=== PATIENT | male | born 2000 | race Two or more races ===

== ENCOUNTER 2024-07-20 21:01 | Emergency (ER) | payer MEDICAID, SELFPAY ==
[2024-07-20 21:04] VITALS: BMI 27.4
[2024-07-20 22:13] VITALS: BP 126/87; PULSE 103; RESP 20; TEMP 37.2; O2SAT 97
--- NOTE | 2024-07-20 22:48 | PD.EDURI ---
Upper Respiratory Inf. RME/HPI General Chief Complaint: Flu Like Symptoms Stated Complaint: FEVER,BODYACHES Time Seen by Provider: 07/20/24 22:36 Arrival date/time: 07/20/24 21:01 24M with history of asthma presents to ED with 3 days of cough, fevers/chills, and body aches. Limitations: no limitations Related Data Home Medications ?Medication ?Instructions ?Recorded ?Confirmed albuterol sulfate 90 mcg/actuation 2 inh inhalation Q6H PRN sob 12/13/19 12/13/19 aerosol inhaler ibuprofen 600 mg tablet 600 mg PO BID PRN Pain 12/13/19 12/13/19 montelukast 10 mg tablet 10 mg PO QDAY 12/13/19 12/13/19 omeprazole 20 mg capsule,delayed 20 mg PO QDAY 12/13/19 12/13/19 release Previous Rx's ?Medication ?Instructions ?Recorded budesonide-formoterol HFA 80 2 puff inhalation BID #10.2 grams 12/14/19 mcg-4.5 mcg/actuation aerosol inhaler (Symbicort) loratadine 10 mg tablet 10 mg PO QDAY PRN Allergy Symptoms 12/14/19 #0 tabs prednisone 10 mg tablet See Rx Instructions .Route 12/14/19 .COMPLEX #4 tabs albuterol sulfate 90 mcg/actuation 2 puff inhalation Q6H PRN 04/23/20 aerosol inhaler (Ventolin HFA) shortness of breath or wheezing #8.5 grams albuterol sulfate 2.5 mg/3 mL 2.5 mg (3 mL) inhalation Q4H #90 mL 07/18/21 (0.083 %) solution for nebulization albuterol sulfate 90 mcg/actuation 2 puff inhalation QID PRN 07/18/21 aerosol inhaler shortness of breath or wheezing #8.5 grams Allergies Allergy/AdvReac Type Severity Reaction Status Date / Time No Known Allergies Allergy Verified 04/23/20 08:50 Review of Systems Review of Systems Systems Reviewed: All systems reviewed, normal except as documented Constitutional Constitutional: Reports system reviewed and no additional complaints, except as documented, Reports as per HPI, Reports body ache(s), Reports chills, Reports fever(s) and Denies headache(s) ENT Ears, Nose, Mouth, and Throat: Denies disequilibrium and Denies headache(s) Cardiovascular Cardiovascular: Reports system reviewed and no additional complaints, except as documented, Denies chest pain and Denies dyspnea Respiratory Respiratory: Reports system reviewed and no additional complaints, except as documented, Reports as per HPI, Reports cough and Denies dyspnea Gastrointestinal Gastrointestinal: Reports system reviewed and no additional complaints, except as documented, Denies abdominal pain, Denies nausea and Denies vomiting Neurologic Neurologic: Reports system reviewed and no additional complaints, except as documented, Denies confusion, Denies disequilibrium and Denies headache(s) Psychiatric Psychiatric: Denies confusion Past Medical History Past Medical History CARDIAC: Negative Congestive Heart Failure RESPIRATORY: Positive Asthma; Negative Chronic Obstructive Pulmonary Disease (COPD) GENITOURINARY: Negative Renal Disease ENDOCRINE: Negative Diabetes Mellitus Type 1 or Diabetes Mellitus Type 2 Family History FAMILY HISTORY: Negative Family Neurologic Problems Social History SMOKING STATUS: Never smoker SECOND HAND EXPOSURE: No SUBSTANCE USE: does not use ED Exam General Limitations: Present no limitations General appearance: Present alert and in no apparent distress Head Head exam: Present atraumatic Eye Eye exam: Present normal appearance, PERRL and EOMI ENT ENT exam: Present normal exam, normal oropharynx and mucous membranes moist Neck Neck exam: Present normal inspection, full ROM and trachea midline Chest Chest inspection: Present normal inspection and symmetric chest wall rise Respiratory Respiratory exam: Present normal lung sounds bilaterally and prolonged expiratory phase Cardiovascular Cardiovascular exam: Present regular rate, normal rhythm and normal heart sounds Abdominal Exam Abdominal exam: Present soft and normal bowel sounds Extremities Exam Extremities exam: Present normal inspection and full ROM Back Exam Back exam: Present normal inspection and full ROM Neurological Exam Neurological exam: Present alert, oriented X3 and CN II-XII intact Psychiatric Psychiatric exam: Present normal affect and normal mood Skin Skin exam: Present warm, dry, intact and normal color Course Quality Measures none Orders Category Date Time Status Bedside Influenza A&B Antigen Test NOW Care 07/20/24 21:04 Completed Dexamethasone Inj [Decadron Inj] Med 07/20/24 22:36 Discontinued 10 mg PO X1 ONE Vital Signs Vital signs: Vital Signs Temperature 99.0 F 07/20/24 22:13 Pulse Rate 103 H 07/20/24 22:13 Respiratory Rate 20 07/20/24 22:13 Blood Pressure 126/87 H 07/20/24 22:13 Pulse Oximetry (%) 97 07/20/24 22:13 Oxygen Delivery Method Room Air 07/20/24 22:13 O2 at 97% on RA and WNLs Upper Respiratory Infection MDM Narrative MDM Narrative:: 24M with history of asthma presents to ED with 3 days of cough, fevers/chills, and body aches. Physical exam reveals clear lungs but prolonged expiration. Patient is afebrile, calm, and alert. Swabs neg. Likely viral URI causing mild asthma exacerbation. Meds and counseling specialist given. Patient data External records reviewed:: [facility] previous records Clinical information provided by:: patient Social determinants that could affect healthcare access:: none Patient has the following chronic illnesses:: asthma How is presenting disease/condition affected by chronic disease/condition?: exacerbated by Evaluation data The following diagnostics were reviewed and interpreted by me:: lab results Lab and/or radiology exams considered but not ordered:: ordered Interpretation Summary: above Medications / Prescriptions Medications or Prescriptions considered but not ordered:: ordered Medication administrations:: Medication Administration History Discontinued Medications Dexamethasone Sodium Phosphate (Dexamethasone Sod Phos Inj 10 Mg/Ml Vial) 10 mg PO X1 ONE Stop: 07/20/24 22:37 above Consultations Consultation(s) initiated? (list below): No Diagnosis Upper Respiratory Differential Diagnosis: upper respiratory infection, croup, otitis media, sinusitis, viral infection, bronchitis, influenza, pharyngitis and other (asthma exacerbation) Most likely diagnosis given after review of the tests above:: URI, asthma exacerbation Admission Indicated Admission indicated?: not indicated Admission Request Was there a request for admission?: No Disposition Plan Disposition Plan: Discharge Discharge Attestation Discharge Attestation: The patient and all family members were given an opportunity to ask questions and understood the discharge instructions. Discharge instructions specifically effects, indications for sooner follow up or return to the emergency department, and the expected course of current diagnosis. Patient condition: Stable Discharge Plan Plan Patient Disposition: HOME (Self Care) Discharge Disposition comment: Stable Prescriptions/Referrals Prescriptions/Med Rec: No Action albuterol sulfate 2.5 mg /3 mL (0.083 %) solution for nebulization 2.5 mg inhalation Q4H Qty: 90 0RF albuterol sulfate 90 mcg/actuation HFA aerosol inhaler 2 puff inhalation QID PRN (Reason: shortness of breath or wheezing) Qty: 8.5 0RF omeprazole 20 mg capsule,delayed release(DR/EC) 20 mg PO QDAY montelukast 10 mg tablet 10 mg PO QDAY ibuprofen 600 mg tablet 600 mg PO BID PRN (Reason: Pain) albuterol sulfate 90 mcg/actuation HFA aerosol inhaler 2 inh INHALATION Q6H PRN (Reason: sob) prednisone 10 mg tablet See Rx Instructions .ROUTE .COMPLEX Qty: 4 0RF Rx Instructions: 1 tab PO Qday x 2 days then 1/2 tab PO Qday x 4 days budesonide-formoterol [Symbicort] 80-4.5 mcg/actuation HFA aerosol inhaler 2 puff inhalation BID Qty: 10.2 0RF loratadine 10 mg tablet 10 mg PO QDAY PRN (Reason: Allergy Symptoms) Qty: 0 0RF albuterol sulfate [Ventolin HFA] 90 mcg/actuation HFA aerosol inhaler 2 puff INH Q6H PRN (Reason: shortness of breath or wheezing) Qty: 8.5 0RF Problem List Clinical Impression: Upper respiratory infection, Mild asthma exacerbation Patient/Caregiver Discharge Instructions Education Materials: ED URI, Viral, No Abx (Adult) Additional Instructions: Please follow-up with PCP within 24-48 hours and return immediately if symptoms worsen. Ibuprofen/Tylenol can be used simultaneously for greater fever/pain control. Print Language: Lithuanian Stand Alone Forms: Work/School Release, Patient Portal Info Letter PA/BERTHA Supervising Physician PA/[employer]ER[employer]IST Supervising Physician: Dr. Molina
[2024-07-20] MEDS: DEXAMETHASONE SOD PHOS INJ 10 MG/ML VIAL PO (22:58)
== END 2024-07-20 22:55 | disposition home or self-care (01) ==
LOC: SERX 23:17
PROVIDERS: Emergency Provider Emergency Medicine; PCP Physician Assistant
DX: J45.901 Unspecified asthma with (acute) exacerbation (principal); J06.9 Acute upper respiratory infection, unspecified
CPT/HCPCS: 87400; 99283; J1100

== ENCOUNTER 2024-10-26 20:58 | Emergency (ER) | payer MEDICAID, SELFPAY ==
[2024-10-26 20:59] VITALS: BMI 28.7
[2024-10-26 21:58] VITALS: BP 126/77; PULSE 89; RESP 16; TEMP 36.8; O2SAT 97
[2024-10-27 01:41] VITALS: BP 137/82; PULSE 87; RESP 18; TEMP 36.8; O2SAT 97
== END 2024-10-27 01:43 | disposition left against medical advice (07) ==
LOC: SERX 10-27 00:17
PROVIDERS: Emergency Provider Emergency Medicine
DX: Z53.21 Procedure and treatment not carried out due to patient leaving prior to being seen by health care provider (principal)
CPT/HCPCS: 99281